=== PATIENT | female | born 1975 | race Caucasian/White ===

== ENCOUNTER 2023-01-11 14:29 | Outpatient (REF) | payer MEDICARE, MEDICAID, SELFPAY ==
--- NOTE | ~2023-01-11 | MM_ITS ---
EXAMINATION: MM SCREENING DIGITAL BREAST TOMOSYNTHESIS, BILATERAL CLINICAL INFORMATION: Screening. Asymptomatic. COMPARISON: Mammography: There are no prior mammograms for comparison. This is a baseline study. TECHNIQUE: Digital breast tomosynthesis is performed in both the craniocaudal and mediolateral oblique views along with computer-aided detection (CAD). Synthesized 2D images are generated from the tomosynthesis. FINDINGS: The breasts are heterogeneously dense, which may obscure small masses (ACR BI-RADS breast composition Category c). There are no significant masses, abnormal calcifications, or other abnormalities. MM/MM tomosynthesis screening BI IMPRESSION: No mammographic evidence of malignancy. ASSESSMENT: BI-RADS BI-RADS 1 - Negative RECOMMENDATION: Routine annual mammography screening. 1 year F/U This examination should not preclude the clinical evaluation of a suspicious palpable abnormality. This patient's information was entered into a reminder system with a target due date for their next mammogram.
== END 2023-01-11 14:30 | disposition home or self-care (01) ==
LOC: HO.MAMMO 14:29
PROVIDERS: Visit Provider Hospitalist
DX: Z12.31 Encounter for screening mammogram for malignant neoplasm of breast (principal)
CPT/HCPCS: 77063; 77067

== ENCOUNTER → 2023-01-11 14:30 | Outpatient (BNV) | payer MEDICARE, MEDICAID, SELFPAY | PROVIDERS: Visit Provider Radiology Diagnostic Radiology | DX: Z12.31 Encounter for screening mammogram for malignant neoplasm of breast (principal) | CPT/HCPCS: 77063; 77067 ==

== ENCOUNTER 2023-01-18 12:58 | Outpatient (AMB) | payer MEDICAID, SELFPAY ==
--- NOTE | 2023-01-18 13:06 | MHC.OFFVIS ---
Intake Intake Visit Reasons: Urinary incontinence Intake Note: New Patient presents for initial visit for urinary incontinence Urology Medications: none Blood Thinner: none Rehabilitation Caseworker Required: No Accompanied by: BALL FRINGE MACHINE OPERATOR Allergies No Known Allergies Allergy (Verified 01/18/23 13:47) Medication List - Last Reconciled 01/18/23 by RUSTY Baron acetaminophen 650 mg PO Q6H PRN bisacodyl 10 mg MN DAILY PRN divalproex (Depakote) 125 mg PO ONCE olanzapine 10 mg PO BEDTIME sennosides (senna) 8.6 mg PO DAILY PRN sertraline 50 mg PO DAILY sodium phosphates 19-7 gram/118 mL (Fleet Enema) 118 mL MN DAILY PRN HPI HPI Comments History of Present Illness Details Zarina is a very pleasant 47-year-old female patient of Dr. mauro who was accompanied by Christiana at today's office visit. She resides at [facility]. 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 She presents to the office today as a new patient for mixed urinary incontinence. In discussion with the patient today she reports symptoms to have been present for quite some time. She discusses noting urinary dribbling and episodes of incontinence if not near a bathroom. When asked she denies hematuria, dysuria, foul smelling urine, changes to urinary stream, flank pain, fever, and or chills. In office urinalysis results reviewed with the patient today. PVR 85 mL. Discussed at length importance of voiding, scheduled toileting and or timed voiding. As patient reports typically urinary issues happen with sense of urinary urgency. Discussed attempting to attend pelvic floor therapy for urinary dribbling. Discussed at length potential causes for lower urinary tract symptoms patient has been experiencing. Discussed and stressed the importance of drinking plenty of water daily as patient reports typically she drinks coffee all day long. Discussed bladder triggers/irritants. She otherwise denies any other issues or concerns at this time. 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 Essential (primary) hypertension Schizophrenia, unspecified Diffuse traumatic brain injury with loss of consciousness of unspecified duration, sequela Review of Systems Const Reports as per HPI Eyes Reports no additional complaints ENT Reports no additional complaints Card Reports as per HPI Resp Reports no additional complaints GI Reports as per HPI Reports as per HPI Musc Reports no additional complaints Neuro Reports as per HPI Psych Reports as per HPI Endo Reports no additional complaints Physical Exam Const General: cooperative, healthy appearing, comfortable, no acute distress, well developed, alert and awake Nutritional Appearance: overweight Orientation/consciousness: patient oriented x3 Limitations: no limitations HEENT Head: Yes normal to inspection, Yes normocephalic and Yes atraumatic Ears: hearing grossly normal bilaterally Eyes General: appearance normal, both eyes and all related structures Neck Neck: Yes normal visual inspection and Yes trachea midline Chest Chest palpation & inspection: normal inspection of the chest Resp Effort & Inspection: normal respiratory effort and able to speak in complete sentences Cardio Rate: regular rate GI Inspection: Yes normal to inspection General: Yes no CVA tenderness Back/Spine/Pelvis Back: no CVA tenderness Skin General skin exam: no rashes or lesions noted Neuro General: patient oriented x3 Extrem General: Yes normal to inspection Psych Appearance: grossly normal and well kempt Mental Status: mental status grossly normal Speech and movement: Normal speech and movement present and Clear speech present Affect: normal affect Attitude: cooperative Thought process: Normal thought process present and Other thought process findings present (slow to respond at times ) Thought content: Normal thought content present Insight: Fair insight present (Psych) Judgement: Fair judgement present (Psych) Office Procedures Post Void Residual Post Residual Void Post Void Residual (PVR): 85 [id number]-[id number] Void Residual by ultrasound Results AMB Urinalysis, Automated UA Leukoctes 0 Rere/uL Last Edit by Rut Farrell on 01/18/23 13:29 UA Nitrite Negative Last Edit by Rut Farrell on 01/18/23 13:29 UA Urobilinogen 0.2 mg/dL Last Edit by DavePerfect Pizzafouzia Farrell on 01/18/23 13:29 UA Protein 15 mg/dL Last Edit by Rut Farrell on 01/18/23 13:29 UA pH 5.5 Last Edit by Rut Farrell on 01/18/23 13:29 UA Blood 0 Oscar/uL Last Edit by Rut Krystajavier on 01/18/23 13:29 UA Specific [place] 1.030 Last Edit by Rut Krystajavier on 01/18/23 13:29 UA Ketone Negative Last Edit by Rut Farrell on 01/18/23 13:29 UA Bilirubin 0 mg/dL Last Edit by Rut Farrell on 01/18/23 13:29 UA Glucose 0 mg/dL Last Edit by Rut Farrell on 01/18/23 13:29 Results Reviewed Results Reviewed: Laboratory Last Values Urine pH (Auto) 5.5 01/18/23 13:27 Specific [place] (Auto) 1.030 01/18/23 13:27 Urine Protein (Auto) 15 mg/dL 01/18/23 13:27 Glucose (UA)(Auto) 0 mg/dL 01/18/23 13:27 Urine Ketones (Auto) Negative 01/18/23 13:27 Urine Blood (Auto) 0 Oscar/uL 01/18/23 13:27 Urine Nitrite (Auto) Negative 01/18/23 13:27 Urine Bilirubin (Auto) 0 mg/dL 01/18/23 13:27 Urine Urobilinogen (Auto) 0.2 mg/dL 01/18/23 13:27 Leukocyte Esterase (Auto) 0 Rere/uL 01/18/23 13:27 Assessment & Plan Assessment & Plan (1) Mixed stress and urge urinary incontinence: Code(s): N39.46 - Mixed incontinence (2) Urinary dribbling: Code(s): N39.43 - Post-void dribbling Plan In office urinalysis results reviewed with the patient today. PVR 85 mL. Discussed at length potential causes for lower urinary tract symptoms patient has been experiencing. Discussed bladder triggers/irritants. Discussed and stressed the importance of scheduled/timed voiding. Will refer to pelvic floor therapy for further assessment evaluation. Will obtain retroperitoneal ultrasound for further assessment evaluation. Discussed possible near future in office cystoscopy and or urodynamics if symptoms persist and/or worsen. Follow-up in 3 months with PVR and imaging to be completed prior; or sooner with any issues, concerns, and or questions. Orders: Orders AMB Post Void Residual by ultrasound Today Z13.9 - Encounter for screening, unspecified US retroperitoneal comp Today N39.46 - Mixed incontinence AMB Urinalysis Automated Today Z13.9 - Encounter for screening, unspecified Referrals Pelvic Maintenance Shop Manager Referral N39.46 - Mixed incontinence Patient Instructions: The patient had an opportunity to ask questions regarding the treatment plan. All questions were answered. Physical exam, labs, and imaging were discussed and reviewed in detail. As well as risks, benefits, and discussion of treatment choices. No major barriers to understanding were identified. The patient expressed understanding and agreement with the above treatment plan. The patient was made aware they should contact our office by phone for worsening of their current condition, the appearance of new symptoms, or with any questions or concerns. Compliance is encouraged with any medications and follow up testing that is ordered. It is a privilege to be allowed the opportunity to participate in? your urological care.? Again, if you have any questions or concerns If you have any questions or concerns please do not hesitate to contact me. The office is [phone]. This note is constructed using voice recognition software. While every effort has been made to ensure accuracy general sales manager errors may have been included. Yours sincerely, TAYLOR Baron- Coding Level of Care Code New Pt Level 3 (48234) Diagnoses Mixed stress and urge urinary incontinence N39.46 Urinary dribbling N39.43 CPT Codes Post Residual Void - PVR CPT Code: 74983-[id number] Void Residual by ultrasound ([id number])
== END 2023-01-18 13:41 | disposition home or self-care (01) ==
PROVIDERS: PCP Hospitalist; Visit Provider Nurse Practitioner Family
DX: N39.46 Mixed incontinence (principal); N39.43 Post-void dribbling; Z13.9 Encounter for screening, unspecified
CPT/HCPCS: 99203

== ENCOUNTER → 2023-01-18 12:58 | Outpatient (BNVA) | payer MEDICARE, MEDICAID, SELFPAY | PROVIDERS: PCP Hospitalist; Visit Provider Nurse Practitioner Family | DX: N39.46 Mixed incontinence (principal); N39.43 Post-void dribbling | CPT/HCPCS: 51798; 81003; 99212 ==

== ENCOUNTER 2023-02-25 14:17 | Outpatient (REF) | payer MEDICARE, MEDICAID, SELFPAY ==
--- NOTE | ~2023-02-25 | US_ITS ---
EXAMINATION: US RETROPERITONEAL LIMITED (RENAL ONLY) CLINICAL INFORMATION: Urinary incontinence. COMPARISON: None available. TECHNIQUE: Real-time imaging of the kidneys. Technically extremely limited study secondary to body habitus. FINDINGS: RIGHT KIDNEY: 11.0 x 5.2 x 4.3 cm (SAG x AP x TRV). The kidney is normal in size, contour, and echogenicity. Renal cortical thickness is normal. No calculi or focal parenchymal lesions. No hydronephrosis. LEFT KIDNEY: 11.9 x 5.9 x 5.4 cm (SAG x AP x TRV). The kidney is normal in size, contour, and echogenicity. Renal cortical thickness is normal. No calculi or focal parenchymal lesions. No hydronephrosis. US/US renal BI IMPRESSION: Normal renal ultrasound.
== END 2023-02-25 14:18 | disposition home or self-care (01) ==
LOC: HO.US 14:17
PROVIDERS: PCP Hospitalist; Visit Provider Hospitalist
DX: N39.46 Mixed incontinence (principal)
CPT/HCPCS: 76775